=== PATIENT | female | born 1935 | race African-American/Black ===

== ENCOUNTER 2020-04-10 17:12 | Emergency (ER) | payer OTHER, BC ==
[~2020-04-10] VITALS: Ht 162.6 cm; Wt 67.6 kg
[~2020-04-10 17:12] MED LIST: AMARYL2 MG PO; DILTIAZEM ER180 M1 PO; ENBREL 25 MG KI25 M1 SC; GLUCOPHAGE500 MG PO; HYDROCHLOROTHIA25 M2 OR; LOVASTATIN OR
[2020-04-10] MEDS ORDERED: HYDRALAZINE 5050 MG PO (17:23)
[2020-04-10 21:44] VITALS: BP 167/88
== END 2020-04-10 21:25 | disposition home or self-care (01) ==
LOC: ER 17:12
DX: S52.591A Other fractures of lower end of right radius, initial encounter for closed fracture (principal); S52.611A Displaced fracture of right ulna styloid process, initial encounter for closed fracture; S00.03XA Contusion of scalp, initial encounter; S80.212A Abrasion, left knee, initial encounter; S80.211A Abrasion, right knee, initial encounter; I48.91 Unspecified atrial fibrillation; I12.9 Hypertensive chronic kidney disease with stage 1 through stage 4 chronic kidney disease, or unspecified chronic kidney disease; E11.22 Type 2 diabetes mellitus with diabetic chronic kidney disease; N18.9 Chronic kidney disease, unspecified; Z99.2 Dependence on renal dialysis; Z79.899 Other long term (current) drug therapy; Z88.5 Allergy status to narcotic agent; W01.198A Fall on same level from slipping, tripping and stumbling with subsequent striking against other object, initial encounter; Y93.89 Activity, other specified; Y92.89 Other specified places as the place of occurrence of the external cause; Y99.8 Other external cause status